=== PATIENT | female | born 1950 | race Caucasian/White ===

== ENCOUNTER 2020-05-15 14:19 | Outpatient (REF) | payer OTHER, SELFPAY ==
--- NOTE | 2020-05-15 14:00 | ENDO_PTH ---
PATIENT: AINSLEY WEBSTER LOC: [facility] U#:[id number] AGE/SX: 69/F ROOM: RE05/15/[address]: Nadine Marks : 1950 BED: DIS: 05/15/2020 SPEC #: [id number] RECD: 05/15/20 17:05 STATUS: YESY RESheila #: [id number] [place]: 05/15/20 14:[address]: Nadine Marks DEPT: Surgical Specimen RECD BY: Toyin Thomas Tissues: 1 - ENDOCERVICAL BX/CURRETTE Procedures: GROSS AND MICRO LEVEL 4 Comments: [id number]
== END 2020-05-15 14:39 ==
LOC: LBN 14:19
PROVIDERS: Visit Provider Obstetrics & Gynecology Gynecology
DX: Z12.79 Encounter for screening for malignant neoplasm of other genitourinary organs (principal); Z87.42 Personal history of other diseases of the female genital tract
CPT/HCPCS: 88305

== ENCOUNTER 2024-06-01 11:05 | Outpatient (CLI) | payer BC, SELFPAY ==
--- NOTE | 2024-06-01 10:45 | PAPFT_PTH ---
PATIENT: AINSLEY WEBSTER LOC: [facility] U#:[id number] AGE/SX: 73/F ROOM: RE06/01/[address]: Xiomara Anguiano DO : 1950 BED: DIS: 06/01/2024 SPEC #: [id number] RECD: 06/01/24 13:27 STATUS: YESY REQ #: [id number] [place]: 06/01/24 10:[address]: Xiomara Anguiano DEPT: [facility] Cytology RECD BY: Toyin Thomas ENTERED: 06/01/24 13:27 SP TYPE: PAPFT OTHR DR: Unknown,Unknown Tissues: 1 - CX/ENDOCX FOR PAP SMEARS Procedures: PAP THIN PREP/[facility] Screening HPV DNA PROBE Comments: [id number] (HPV 16 & 18/45)
[2024-08-26 18:17] VITALS: BP 136/82; PULSE 82
[2024-08-26 19:10] VITALS: BP 124/75; PULSE 79
[2024-08-26 22:27] VITALS: BP 147/63; PULSE 75
[2024-08-27] VITALS (8 sets, daily range): BP systolic 98–146; BP diastolic 54–76; PULSE 69–83
== END 2024-06-01 11:06 | disposition home or self-care (01) ==
LOC: DI 08-26 18:20
PROVIDERS: Visit Provider Obstetrics & Gynecology
DX: Z12.31 Encounter for screening mammogram for malignant neoplasm of breast (principal); Z01.419 Encounter for gynecological examination (general) (routine) without abnormal findings; R87.810 Cervical high risk human papillomavirus (HPV) DNA test positive
CPT/HCPCS: 88142; 87624